=== PATIENT | female | born 1965 | race Caucasian/White ===

== ENCOUNTER → 2016-11-12 | Outpatient (CLI) | payer BC | LOC: MMGSC 11:01 | PROVIDERS: ATTEND Family Medicine | DX: H60.91 Unspecified otitis externa, right ear (principal) | CPT/HCPCS: 87070; 87205 ==

== ENCOUNTER → 2016-11-30 | Outpatient (CLI) | payer BC ==
[2016-11-30 10:34] LABS: CH 31.3; CHCM 33.8; HCT 41.8 % (34.0-46.0); HDW 2.37; MCH 31.2 pg (25.0-35.0); MCHC 33.6 g/dL (31.0-37.0); MCV 92.9 fL (80.0-100.0); Mean Platelet Volume 8.7; RBC 4.49 m/uL (3.80-5.40); RDW 12.9 % (11.5-15.5); WBC 5.6 k/uL (3.8-10.6)
[2016-11-30 10:48] LABS: ALT 37 U/L (9-52); AST 25 U/L (14-36); Alkaline Phosphatase 73 U/L (38-126); Anion Gap 14 mmol/L; Blood Urea Nitrogen 14 mg/dL (7-17); Calcium 9.9 mg/dL (8.4-10.2); Carbon Dioxide 26 mmol/L (22-30); Chloride 102 mmol/L (98-107); Glucose 87 mg/dL (74-99); Non-African American GFR(MDRD) >60 (>60 ml/min/1.73 sqM); Potassium 4.3 mmol/L (3.5-5.1); Sodium 142 mmol/L (137-145); Total Bilirubin 0.5 mg/dL (0.2-1.3); Total Protein 7.9 g/dL (6.3-8.2)
[2016-11-30 11:18] LABS: Partial Thromboplastin Time 24.3 sec (22.0-30.0); Prothrombin Time 10.5 sec (9.0-12.0)
[2016-11-30 13:50] LABS: Appearance,Urine Clear (Clear); Bilirubin,Urine Negative (Negative); Glucose,Urine (UA) Negative (Negative); Ketones,Urine Negative (Negative); Leukocyte Esterase,Urine Small (Negative); Nitrite,Urine Negative (Negative); Particle Count 305; Protein,Urine Negative (Negative); Specific Gravity,Urine 1.003 (1.001-1.035); UA Billing (MACRO vs. MICRO) MICRO; Urobilinogen,Urine <2.0 mg/dL (<2.0); WBC,Urine 2 /hpf (0-5)
== END | disposition home or self-care (01) ==
LOC: LABWHC1 09:48
PROVIDERS: ATTEND Orthopaedic Surgery
DX: Z01.810 Encounter for preprocedural cardiovascular examination (principal); Z01.812 Encounter for preprocedural laboratory examination
CPT/HCPCS: 36415; 80053; 81001; 85027; 85610; 85730; 86850; 86900; 86901; 87070

== ENCOUNTER 2016-12-08 07:11 | Inpatient (IN) | payer BC ==
[2016-12-02 14:29] VITALS: BMI 34.9
[~2016-12-08 07:11] MED LIST: ACETAMINOPHEN TAB 500 MG TAB PO ONE; DEXAMETHASONE SOD PHOSPHATE 10 MG/ML 1 ML VIAL IV ONE; HYDROmorphone 1 MG/ML 1 ML SYRINGE IVP PRN; LIDOCAINE 1% 20 ML VIAL (10MG/ML) FOR IV START INTRADERMA PRN; MELOXICAM 7.5 MG TAB PO ONE; MIDAZOLAM 2 MG/2 ML VIAL IV PRN; ONDANSETRON 4 MG/2 ML VIAL IVP ONE; SCOPOLAMINE 1.5MG/72HR PATCH TRANSDERM ONE; TRANEXAMIC ACID 1,000 MG in SODIUM CHLORIDE 0.9% 100 ML IVPB ONE; ceFAZolin 2 GM in SODIUM CHLORIDE 0.9% 100 ML IVPB ONE
[2016-12-08] MEDS: LACTATED RINGERS 1,000 ML IV SCH (08:09)
[2016-12-08] MEDS ORDERED: MIDAZOLAM 2 MG/2 ML VIAL ONE (09:49)
[2016-12-08] MEDS ORDERED: ePHEDrine 50 MG/ML 1 ML AMP ONE (09:49)
[2016-12-08] MEDS ORDERED: SODIUM CHLORIDE 0.9% IRRIG 1,000 ML BTL IRRIGATION ONE (09:49)
[2016-12-08] MEDS ORDERED: TRANEXAMIC ACID 1,000 MG/10 ML VIAL ONE (09:49)
[2016-12-08] MEDS ORDERED: fentaNYL (PF) 50 MCG/ML 2 ML AMP ONE (09:49)
[2016-12-08] MEDS ORDERED: SODIUM CHLORIDE 0.9% 100 ML BAG ONE (09:49)
[2016-12-08] MEDS ORDERED: PROPOFOL 10 MG/ML 20 ML VIAL IV ONE (09:49)
[2016-12-08] MEDS ORDERED: ceFAZolin 3,000 MG in SODIUM CHLORIDE 0.9% IRRIGATIO 3,000 ML IRRIGATION ONE (09:49)
[2016-12-08] MEDS ORDERED: HEPARIN SODIUM,PORCINE 10,000 UNIT/ML 1 ML VIAL ONE (09:49)
[2016-12-08] MEDS: ROPIVACAINE 246.25 MG, EPINEPHrine 0.5 MG, KETOROLAC 30 MG, cloNIDine HCL/PF 80 MCG, WA... MISCELLANE ONE ×10 (10:08→11:06)
[2016-12-08] MEDS ORDERED: LACTATED RINGERS 1,000 ML IV ONE (11:00)
--- NOTE | 2016-12-08 11:24 | XR ---
EXAMINATION TYPE: XR Hip Limited RT DATE OF EXAM: 12/08/2016 COMPARISON: NONE HISTORY: Intraoperative right hip surgery TECHNIQUE: One view submitted. FINDINGS: There is a prosthetic hip in near anatomic alignment. There is soft tissue edema and emphysema. IMPRESSION: 1. Surgical change. Appears in near-anatomic alignment.
--- NOTE | 2016-12-08 11:25 | FL ---
FLUOROSCOPY 62nd of fluoroscopy time were utilized during right anterior hip replacement. 2 images document the p rocedure.
[2016-12-08] MEDS ORDERED: DIAZEPAM 5 MG TAB PO PRN ×2 (11:46)
[2016-12-08] MEDS ORDERED: MAGNESIUM HYDROXIDE 2,400 MG/10 ML CUP PO PRN (11:46)
[2016-12-08] MEDS ORDERED: HYDROmorphone 1 MG/ML 1 ML SYRINGE IVP PRN ×3 (11:46)
[2016-12-08] MEDS ORDERED: hydrOXYzine PAMOATE 25 MG CAP PO PRN (11:46)
[2016-12-08] MEDS ORDERED: NALOXONE 0.4 MG/ML 1 ML VIAL IV PRN (11:46)
[2016-12-08] MEDS ORDERED: ONDANSETRON 4 MG/2 ML VIAL IVP PRN (11:46)
[2016-12-08] MEDS ORDERED: HYDROcodone/APAP 5-325MG 1 EACH TAB PO PRN (11:46)
--- NOTE | 2016-12-08 12:06 | XR ---
EXAMINATION TYPE: XR Hip Limited RT DATE OF EXAM: 12/08/2016 COMPARISON: NONE HISTORY: Postop TECHNIQUE: One view submitted. FINDINGS: There is a prosthetic hip in near anatomic alignment. There is soft tissue edema and emphysema. IMPRESSION: 1. Postoperative change. Appears in near-anatomic alignment.
--- NOTE | 2016-12-08 12:32 | P.OP ---
Date of Procedure: 12/08/16 Preoperative Diagnosis: Severe osteoarthritis right hip Postoperative Diagnosis: Severe osteoarthritis right hip Procedure(s) Performed: Right total hip arthroplasty with a direct anterior approach Implants: Santa and nephew Polarstem size 3 standard Santa & Nephew R3, 3 hole acetabular shell, 48 mm Santa & Nephew reflection 6.5 mm cancellus screw, 20 mm 2 Santa [employer] Nephew R3, XLPE 20 acetabular liner Santa & Nephew Oxinium femoral head 32 m, +0 All components were press-fit. The articulation is ceramic on polyethylene. Anesthesia: spinal Surgeon: Benjamin Pepper Drop Pit Worker #1: Padma Archer Estimated Blood Loss (ml): 200 (63 cc returned with cell saver) Pathology: other (Femoral head) Condition: stable Disposition: PACU Indications for Procedure: After failure of conservative treatment we discussed the surgical and nonsurgical treatment options at length. Patient wishes to proceed with a total hip arthroplasty with a direct anterior approach. Complications specific to this procedure were discussed at length, including but not limited to infection, leg length discrepancy, dislocation, and nerve injury. Patient is aware of all these complications and informed consent was obtained Operative Findings: The operative findings are consistent with severe osteoarthritis of the right hip Description of Procedure: Patient was seen and evaluated in the preoperative area, consent was reviewed, and the surgical site was marked with a skin marker. Patient was then brought to the operating room and given prophylactic antibiotics intravenously. 1 g of Tranexamic acid was also given. A spinal anesthetic was administered by the anesthesia department. The patient was then placed on the [place] table with the bony prominences well-padded. The hip area was then prepped and draped in usual sterile fashion. A universal timeout was then performed, which confirmed the patient's name, surgical site, ALLERGIES, and procedure being performed. Next the incision site was located at 1 cm distal and 1 cm lateral to the anterior superior iliac spine. The skin and subcutaneous tissues were sharply incised. Incision was carefully dissected down to the fascia overlying the tensor fascia jose muscle. This fascia was then incised in line with the incision. Next, using blunt finger dissection, the tensor fascia jose muscle was dissected off its investing fascia. The muscle was then carefully retracted laterally with a cobra retractor over the lateral neck of the femur. Next, the circumflex vessels were identified and cauterized using the AquaMantis device. The anterior hip capsule was then exposed. The capsule was then opened and an inverted T fashion. Retention sutures were placed in the inferior arms of the capsule. Cobra retractors were then placed intracapsularly. The proximal femur was then visualized. The femoral neck was then osteotomized appropriate level above the lesser trochanter. Small amount of traction was placed with the [place] table. A small wedge of bone was then removed from the remaining femoral head. Next, using a corkscrew femoral head was easily removed from the acetabulum. On gross visual inspection, the femoral head had complete loss of articular cartilage in multiple periarticular osteophytes. Attention was then turned to the acetabulum. the acetabulum was exposed and any remaining labrum was excised. Sequential reaming of the acetabulum was performed using fluoroscopic guidance. When the appropriate size was reached, a trial was then placed. The position and fit of the trial was checked with fluoroscopy. The trial was then removed. Then, using fluoroscopic guidance, the final implant was impacted at 20 of anteversion and 40 of abduction, and fully seated in the acetabulum. 2 screws were then placed in the acetabulum. Again fluoroscopy was used to check position of the screws. Next, the liner was then impacted, with a 20 elevated liner located in the anterior superior quadrant. Component locking was confirmed. Attention was then directed to the femur. With the aid of the [place] table, the femur was externally rotated to approximately 130, extended, and abducted under the opposite leg. A side hook was then placed under the proximal femur, and the side hook elevator was used to elevate the proximal femur. Retractors were then placed. A capsular release was performed, as well as a release of the conjoined tendon, which afforded excellent visualization of the proximal femur. Next, a box osteotome was used to lateralize the proximal femur. A hand tacker was then used to locate the femoral canal. Sequential broaching was then performed with appropriate size which afforded excellent fixation in the proximal femur. A trial was then placed with appropriate head and neck, and the hip was gently reduced with the aid of the [place] table. Fluoroscopy was then used to check position of the components, as well as to ensure equal leg lengths. The hip was then gently dislocated and the trials were then removed. Final implants were then impacted and the hip was again reduced. Final fluoroscopic x-rays confirmed that the components were in anatomic position, as well as equal leg lengths. The hip was also taken through range of motion, and found to be stable. The hip was then copiously irrigated with antibiotic solution with pulsatile lavage. The soft tissues were then injected with a ropivacaine solution, which consisted of 246.25 mg of ropivacaine, 0.5 mg of epinephrine, 30 mg of Toradol, 80 g of clonidine, and 48.45 mL of sterile water, for a total of 100 mL of fluid injected. A second dose of 1 g of Tranexamic acid was also given. the fascia was then closed with 2-0 strata fix suture. The subcutaneous tissue was closed with 3-0 Vicryl. The subcuticular tissue was closed with 3-0 strata fix suture. The skin was then closed with Dermabond tape. The patient was then transferred to the recovery room in stable condition. The community assistant JORGE Erickson was required due to the complexity of surgery, and the need for skilled apartment assistant manager for positioning, draping, exposure, retraction, and closure of the wound.
[2016-12-08] MEDS: ceFAZolin 2 GM in SODIUM CHLORIDE 0.9% 100 ML IVPB SCH ×2 (15:39→23:05)
[2016-12-08] MEDS: SODIUM CHLORIDE 0.9% 1,000 ML IV SCH (15:39)
--- NOTE | 2016-12-08 18:31 | P.CONS ---
History of Present Illness - Reason for Consult Consult date: 12/08/16 Medical management Requesting physician: Benjamin Pepper - Chief Complaint Post right total hip arthroplasty, COPD, tachycardia and arrhythmia, GERD, - History of Present Illness 51-year-old female one of Dr. Mukherjee's patient with past medical history of elevated blood pressure, mild COPD, GERD, tachycardia and chronic edema who has been suffering from increased arthritis pain and discomfort of the right hip for the last 4 years. Patient had seen Dr. ePpper and failed conservative management had physical therapy and anti-inflammatory with no relief. Patient was scheduled for elective right total hip anterior approach total hip replacement surgery was done today successfully with no major complication she is up in the floor her Ace catheter was removed back on oral hydrocodone for pain patient was able template slightly. Review of Systems Constitutional: Reports anorexia, Reports fatigue, Reports malaise, Denies as per HPI, Denies chills, Denies chronic headaches, Denies chronic pain, Denies daytime sleepiness, Denies fever, Denies lethargy, Denies night sweats, Denies poor appetite, Denies sweats, Denies weakness, Denies weight gain, Denies weight loss Eyes: bilateral as per HPI Ears: bilateral: decreased hearing Ears, nose, mouth and throat: Reports nasal discharge, Reports sinus pain, Reports sinus pressure, Denies as per HPI, Denies ant. neck pain, Denies bleeding gums, Denies dental pain, Denies dysphagia, Denies epistaxis, Denies headache, Denies hoarseness, Denies mouth pain, Denies nasal congestion, Denies neck fullness/pressure, Denies neck lump, Denies nose pain, Denies odynophagia, Denies post-nasal drip, Denies swelling in mouth, Denies swelling in throat, Denies sore throat, Denies vertigo, Denies voice changes Breasts: bilateral: as per HPI Cardiovascular: Reports edema, Reports high blood pressure, Reports lightheadedness, Reports orthopnea, Denies as per HPI, Denies chest pain, Denies claudication, Denies decreased exercise tolerance, Denies dyspnea on exertion, Denies irregular heart beat, Denies leg edema, Denies palpitations, Denies paroxysmal nocturnal dyspnea, Denies phlebitis, Denies rapid heart beat, Denies shortness of breath, Denies syncope Respiratory: Reports congestion, Denies as per HPI, Denies cough, Denies cough with sputum, Denies dyspnea, Denies excessive sputum, Denies hemoptysis, Denies home oxygen, Denies pain, Denies pain on inspiration, Denies pleurisy, Denies respiratory infections, Denies sleep apnea, Denies snoring, Denies wheezing Gastrointestinal: Reports bloating, Reports dyspepsia, Reports indigestion, Reports nausea, Denies as per HPI, Denies abdominal pain, Denies belching, Denies BRBPR, Denies change in bowel habits, Denies coffee ground emesis, Denies constipation, Denies diarrhea, Denies early satiety, Denies excessive gas , Denies heartburn, Denies hematemesis, Denies hematochezia, Denies jaundice, Denies lactose intolerance, Denies loss of appetite, Denies melena, Denies vomiting Musculoskeletal: Reports loss of height, Reports low back pain, Reports myalgias , Reports neck pain, Denies as per HPI, Denies arm numbness/tingling, Denies atrophy, Denies fractures, Denies frequent falls, Denies gait dysfunction, Denies hot joints, Denies leg numbness/tingling, Denies limitation of motion, Denies morning stiffness, Denies muscle cramps, Denies muscle weakness, Denies neck stiffness, Denies prior amputations, Denies redness of joints, Denies shooting arm pain, Denies shooting leg pain Musculoskeletal: right: hip pain Integumentary: Reports pruritus, Reports rash, Denies as per HPI, Denies acne, Denies boils, Denies brittle nails, Denies change in hair/nails, Denies color changes, Denies darkening of skin, Denies depigmentation, Denies dryness, Denies foot/leg ulcers, Denies growths, Denies hirsutism, Denies lesions, Denies onychomycosis, Denies sores, Denies striae, Denies unusual bruising, Denies wounds Neurological: Reports paresthesias, Reports tingling, Denies as per HPI, Denies aphasia, Denies ataxia, Denies balance difficulties, Denies burning pain, Denies change in mentation, Denies change in smell/taste, Denies change in speech, Denies confusion, Denies convulsions, Denies double vision, Denies gait dysfunction, Denies head injury, Denies headaches, Denies hearing difficulties, Denies lack of coordination, Denies loss of vision, Denies memory loss, Denies migraines, Denies motor disturbance, Denies numbness, Denies paralysis, Denies seizures, Denies sensory deficit, Denies spasticity, Denies syncope, Denies tic , Denies transient paralysis, Denies tremors, Denies vertigo, Denies weakness, Denies visual changes Psychiatric: Reports anhedonia, Reports depression, Denies as per HPI, Denies anxiety, Denies anxiety attacks, Denies change in appetite, Denies change in libido, Denies change in sleep habits, Denies confusion, Denies difficulty concentrating, Denies disorientation, Denies hallucinations, Denies hopelessness , Denies hypersomnia, Denies insomnia, Denies irritability, Denies memory loss, Denies mood swings, Denies paranoia, Denies sadness/tearfulness, Denies sleep disturbances, Denies suicidal ideation Endocrine: Reports fatigue, Reports polydipsia, Reports polyuria, Denies as per HPI, Denies cold intolerance, Denies deepening of the voice, Denies excessive sweating, Denies excessive thirst, Denies flushing, Denies heat intolerance, Denies high blood sugars, Denies increase in ring/shoe/hat size, Denies low blood sugars, Denies nocturia, Denies palpitations, Denies polyphagia, Denies proptosis, Denies recent glucocorticoid use, Denies thyroid mass, Denies weight change Hematologic/Lymphatic: Denies as per HPI, Denies easy bleeding, Denies easy bruising, Denies lymphadenopathy, Denies lymphedema, Denies thrombophilia Allergic/Immunologic: Reports allergic rhinitis, Denies as per HPI, Denies anaphylaxis, Denies angioedema, Denies gluten intolerance, Denies persistent infections, Denies seasonal allergies, Denies urticaria, Denies wheezing Past Medical History Past Medical History: COPD, GERD/Reflux, Osteoarthritis (OA) Additional Past Medical History / Comment(s): sinus tachycardia History of Any Multi-Drug Resistant Organisms: None Reported Past Surgical History: Orthopedic Surgery, Tubal Ligation Additional Past Surgical History / Comment(s): cervical fusion, carpal tunnel release, arthroscopic knee surg. Past Anesthesia/Blood Transfusion Reactions: Postoperative Nausea & Vomiting ( PONV) Smoking Status: Former smoker - Past Family History Mother Family Medical History: No Reported History Medications and Allergies Home Medications Medication Instructions Recorded Confirmed Type Calcium Carbonate/Vitamin D3 1 tab PO DAILY 02/12/15 12/08/16 History [Calcium 600 + Vit D Tablet] Cetirizine HCl [Zyrtec] 10 mg PO DAILY 02/12/15 12/08/16 History Flaxseed [Flaxseed Oil] 1,000 mg PO DAILY 02/12/15 12/08/16 History Nebivolol HCl [Bystolic] 10 mg PO DAILY 02/12/15 12/08/16 History Omeprazole [PriLOSEC] 20 mg PO QAM 02/12/15 12/08/16 History buPROPion HCL [Wellbutrin SR] 150 mg PO BID 02/12/15 12/08/16 History Cholecalciferol [Vitamin D3] 1,000 unit PO DAILY 12/02/16 12/08/16 History Hydrochlorothiazide [Hydrodiuril] 25 mg PO DAILY 12/02/16 12/08/16 History Ibuprofen [Motrin] 600 mg PO Q8HR PRN 12/02/16 12/08/16 History Multivit with Calcium,Iron,Min 1 tab PO DAILY 12/02/16 12/08/16 History [Women's Multivitamin] Turmeric Root Extract [Turmeric] 500 mg PO DAILY 12/02/16 12/08/16 History Vitamin B Complex 1 cap PO DAILY 12/02/16 12/08/16 History Allergies Allergy/AdvReac Type Severity Reaction Status Date / Time venom-honey bee Allergy Severe Anaphylaxis Verified 12/08/16 12:23 [bee venom (honey bee)] Physical Exam Vitals: Vital Signs Temp Pulse Resp BP Pulse Ox 12/08/16 14:15 91 101/56 12/08/16 14:00 85 105/58 12/08/16 13:45 82 100/56 12/08/16 13:30 82 98/53 12/08/16 13:15 83 108/55 12/08/16 13:00 80 108/58 12/08/16 12:45 82 120/58 12/08/16 12:30 97.0 F L 65 18 119/53 100 12/08/16 12:16 70 16 99/62 99 12/08/16 12:01 73 16 99/60 99 12/08/16 11:46 86 16 98/55 98 12/08/16 07:55 98.2 F 86 16 134/65 96 Intake and Output 12/08/16 12/08/16 12/08/16 06:59 14:59 22:59 Intake Total 1641 Output Total 200 Balance 1441 Intake: IV 1501 Intake, IV Titration 140 Amount Sodium Chloride 0.9% 1, 140 000 ml @ 70 mls/hr IV . [id number] [facility] Rx#:[id number] Output: Estimated Blood Loss 200 Other: Voiding Method Toilet # Voids 1 - Constitutional General appearance: no average body habitus, cooperative, no disheveled, no mild distress, no morbidly obese, no acute distress, no obese, no severe distress, no thin - EENT Eyes: no abnormal pupil, no anicteric sclerae, no disc margins sharp, no edentulous, no EOMI, no PERRLA, no fundus normal, no photophobia, no dentition normal, no poor dentition, no ptosis, no scleral icterus, normal appearance ENT: no hard of hearing, no hearing grossly normal, no NA/AT, normal oropharynx , no other, no pharyngeal erythema, no thrush, no tonsillar exudates, no tonsillar swelling Ears: bilateral: normal - Neck Neck: no lymphadenopathy, normal ROM, no other, no rigidity, no stridor, no thyromegaly Carotids: bilateral: upstroke normal Thyroid: bilateral: normal size - Respiratory Respiratory: bilateral: diminished, dullness - Cardiovascular Rhythm: regular Heart sounds: normal: S1, S2 Abnormal Heart Sounds: no systolic murmur, no diastolic murmur, no rub, no S3 Gallop, no S4 Gallop, no click, no other - Gastrointestinal General gastrointestinal: no absent bowel sounds, no decreased bowel sounds, distended, no hepatomegaly, no hyperactive bowel sounds, no normal bowel sounds , no organomegaly, no rigid, no scaphoid, soft, no splenomegaly, no tenderness, no umbilical hernia, no ventral hernia - Integumentary Incision in the right hip looks fine with no hematoma or thigh tenderness possible pulse dorsalis pedis and no sign of dropping foot. Integumentary: no calor, no cellulitis, no cyanotic, no decreased turgor, no flushed, no jaundiced, normal, no normal turgor, pale, rash, no ulcer - Neurologic Neurologic: CNII-XII intact - Musculoskeletal Musculoskeletal: gait normal, generalized weakness, strength equal bilaterally, no right sided weakness, no left sided weakness - Psychiatric Psychiatric: A&O x's 3, appropriate affect, no intact judgment & insight Assessment and Plan Plan: 1 post right total hip arthroplasty: Resume home meds, will watch patient hemodynamic status, control pain and anticoagulation will be addressed. 2 COPD: Patient can be on precaution DuoNeb nebulizer as needed. 3 hypertension: Has been doing well on by systolic 10 mg daily. 4 severe GERD: Has been on omeprazole 20 mg a day. 5 chronic edema: Has been on Hydrea diarrheal 25 g a day. 6 chronic depression: Patient is on Wellbutrin 150 mg twice a day. 7 ALLERGY: Patient to be continue on Zyrtec 10 mg daily. 8 anticoagulation: With patient's current surgery patient can benefit from being on full-size aspirin for the next 30 days. 9 pulmonary prophylaxis: Incentive spirometry bedside and watch for any atelectasis or lung complication. CODE STATUS: Full code. Dr. Pepper thank you very much for the consult if I can be any further help to please let me know.
[2016-12-08 19:44] VITALS: RESP 16
[2016-12-08] MEDS ORDERED: SENNOSIDES-DOCUSATE SODIUM 1 EACH TAB PO SCH (21:00)
[2016-12-08] MEDS: ASPIRIN 325 MG TAB PO SCH (22:06)
[2016-12-08] MEDS: HYDROcodone/APAP 5-325MG 1 EACH TAB PO PRN (22:06)
[2016-12-09] MEDS: LACTATED RINGERS 1,000 ML IV SCH (04:19)
[2016-12-09] MEDS: SODIUM CHLORIDE 0.9% 1,000 ML IV SCH (04:32)
[2016-12-09] MEDS: HYDROcodone/APAP 5-325MG 1 EACH TAB PO PRN ×2 (06:09→11:53)
[2016-12-09 07:33] LABS: Basophils % (A) 0 %; CH 31.5; CHCM 34.4; Eosinophils % (A) 0 %; HDW 2.44; HGB 10.9 gm/dL (11.4-16.0); Luc # (Auto) 0.21; Luc % (Auto) 3; Lymphocytes # (A) 2.1 k/uL (1.0-4.8); Lymphocytes % (A) 27 %; MCH 31.2 pg (25.0-35.0); MCHC 33.9 g/dL (31.0-37.0); Mean Platelet Volume 8.3; Monocytes # (A) 0.5 k/uL (0-1.0); Monocytes % (A) 7 %; Neutrophils % (A) 63 %; RBC 3.48 m/uL (3.80-5.40); RDW 12.9 % (11.5-15.5); WBC (Perox) 8.33
[2016-12-09 08:31] VITALS: BP 111/62; PULSE 83; TEMP 97.8
--- NOTE | 2016-12-09 08:45 | P.DS ---
Providers Date of admission: 12/08/16 07:11 Expected date of discharge: 12/09/16 Attending physician: Benjamin Pepper Consults: 12/08/16 11:46 Consult Physician Routine Consulting Provider: Zhen Ayala Reason/Comments: medical management Do you want consulting provider notified?: Yes Primary care physician: Suha [facility] Course: This is a 51-year-old female with known history of degenerative arthritis of the right hip. The patient presents for evaluation. After discussion and consideration patient elects to proceed with total hip arthroplasty. The patient is seen preoperatively by Dr. Pepper and cleared for surgery. Patient is admitted to [facility] on 12/08/2016 for total hip arthroplasty. The procedures performed without complication or sequelae. The patient is doing well postoperatively. Labs and vital signs are stable on day of discharge. On day of discharge patient's hip incision is healing well. There is minimal erythema. There is no drainage noted at this time. There is minimal soft tissue swelling to the hip and thigh. Patient has full foot and ankle motion without difficulty or pain. Neurovascular status to the right lower extremity is intact. Patient is discharged home in good condition.Please see med rec for accurate list of home medications. Plan - Discharge Summary New Discharge Prescriptions: New Aspirin 325 mg PO BID #60 tab HYDROcodone/APAP 5-325MG [[place] 5-325] 1 - 2 tab PO Q4-6H PRN #90 tab PRN Reason: Pain Sennosides-Docusate Sodium [Senokot-S] 1 tab PO BID #60 tablet No Action buPROPion HCL [Wellbutrin SR] 150 mg PO BID Omeprazole [PriLOSEC] 20 mg PO QAM Cetirizine HCl [Zyrtec] 10 mg PO DAILY Nebivolol HCl [Bystolic] 10 mg PO DAILY Flaxseed [Flaxseed Oil] 1,000 mg PO DAILY Calcium Carbonate/Vitamin D3 [Calcium 600 + Vit D Tablet] 1 tab PO DAILY Hydrochlorothiazide [Hydrodiuril] 25 mg PO DAILY Cholecalciferol [Vitamin D3] 1,000 unit PO DAILY Ibuprofen [Motrin] 600 mg PO Q8HR PRN PRN Reason: Pain Vitamin B Complex 1 cap PO DAILY Turmeric Root Extract [Turmeric] 500 mg PO DAILY Multivit with Calcium,Iron,Min [Women's Multivitamin] 1 tab PO DAILY Discharge Medication List Calcium Carbonate/Vitamin D3 [Calcium 600 + Vit D Tablet] 1 tab PO DAILY [History] Cetirizine HCl [Zyrtec] 10 mg PO DAILY 02/12/15 [History] Flaxseed [Flaxseed Oil] 1,000 mg PO DAILY 02/12/15 [History] Nebivolol HCl [Bystolic] 10 mg PO DAILY 02/12/15 [History] Omeprazole [PriLOSEC] 20 mg PO QAM 02/12/15 [History] buPROPion HCL [Wellbutrin SR] 150 mg PO BID 02/12/15 [History] Cholecalciferol [Vitamin D3] 1,000 unit PO DAILY 12/02/16 [History] Hydrochlorothiazide [Hydrodiuril] 25 mg PO DAILY 12/02/16 [History] Ibuprofen [Motrin] 600 mg PO Q8HR PRN 12/02/16 [History] Multivit with Calcium,Iron,Min [Women's Multivitamin] 1 tab PO DAILY 12/02/16 [ History] Turmeric Root Extract [Turmeric] 500 mg PO DAILY 12/02/16 [History] Vitamin B Complex 1 cap PO DAILY 12/02/16 [History] Aspirin 325 mg PO BID #60 tab 12/09/16 [Rx] HYDROcodone/APAP 5-325MG [[place] 5-325] 1 - 2 tab PO Q4-6H PRN #90 tab 12/09/16 [ Rx] Sennosides-Docusate Sodium [Senokot-S] 1 tab PO BID #60 tablet 12/09/16 [Rx] Follow up Appointment(s)/Referral(s): Benjamin Pepper DO [Doctor of Osteopathic Medicine] - 2 Weeks Activity/Diet/Wound Care/Special Instructions: Weightbearing as tolerated with walker May shower after 2 days if no drainage from the incision Follow-up with [facility] in 2 weeks with any questions or concerns Discharge Disposition: HOME WITH HOME HEALTH SERVICES
[2016-12-09] MEDS: ASPIRIN 325 MG TAB PO SCH (08:48)
[2016-12-09] MEDS ORDERED: HYDROCHLOROTHIAZIDE 25 MG TAB PO SCH (09:00)
[2016-12-09] MEDS ORDERED: LORATADINE 10 MG TAB PO SCH (09:00)
[2016-12-09] MEDS ORDERED: B COMPLEX-VIT C-VIT E-ZINC 1 EACH TAB PO SCH (09:00)
[2016-12-09] MEDS ORDERED: FLAXSEED 1000 MG PO SCH (09:00)
[2016-12-09] MEDS ORDERED: NEBIVOLOL 5 MG TAB PO SCH (09:00)
[2016-12-09] MEDS ORDERED: MELOXICAM 7.5 MG TAB PO SCH (09:00)
[2016-12-09] MEDS ORDERED: buPROPion SR 150 MG TABLET.ER PO SCH (09:00)
[2016-12-09] MEDS ORDERED: CALCIUM CARB-VIT D 500MG-200UN 1 EACH TAB PO SCH (09:00)
[2016-12-09] MEDS ORDERED: NON-FORMULARY DRUG (Turmeric Root Extract [Turmeric] 500 MG) PO SCH (09:00)
[2016-12-09] MEDS ORDERED: CHOLECALCIFEROL 1,000 UNIT TAB PO SCH (12:00)
--- NOTE | 2016-12-09 12:37 | P.PN ---
Subjective 51-year-old female one of Dr. Mukherjee's patient with past medical history of elevated blood pressure, mild COPD, GERD, tachycardia and chronic edema who has been suffering from increased arthritis pain and discomfort of the right hip for the last 4 years. Patient had seen Dr. Pepper and failed conservative management had physical therapy and anti-inflammatory with no relief. Patient was scheduled for elective right total hip anterior approach total hip replacement surgery was done today successfully with no major complication she is up in the floor her Ace catheter was removed back on oral hydrocodone for pain patient was able template slightly. 12/08: Patient continues to ambulate in hallway. Incision healing well, patient is doing well. Plan for discharge today with outpatient physical therapy. Objective - Vital Signs Vital signs: Vital Signs Temp 97.8 F 12/09/16 07:00 Pulse 83 12/09/16 07:00 Resp 16 12/09/16 07:00 BP 111/62 12/09/16 07:00 Pulse Ox 100 12/09/16 09:48 Intake & Output 12/08/16 12/09/16 12/09/16 18:59 06:59 18:59 Intake Total 1881 840 120 Output Total 200 Balance 1681 840 120 Intake: IV 1501 840 Sodium Chloride 0.9% 1, 840 000 ml @ 70 mls/hr IV . [id number] LADY Rx#:[id number] Intake, IV Titration 140 Amount Sodium Chloride 0.9% 1, 140 000 ml @ 70 mls/hr IV . [id number] LADY Rx#:[id number] Oral 240 120 Output: Estimated Blood Loss 200 Other: Voiding Method Toilet Toilet Toilet # Voids 1 1 - Exam - Constitutional General appearance: no average body habitus, cooperative, no disheveled, no mild distress, no morbidly obese, no acute distress, no obese, no severe distress, no thin - EENT Eyes: no abnormal pupil, no anicteric sclerae, no disc margins sharp, no edentulous, no EOMI, no PERRLA, no fundus normal, no photophobia, no dentition normal, no poor dentition, no ptosis, no scleral icterus, normal appearance ENT: no hard of hearing, no hearing grossly normal, no NA/AT, normal oropharynx , no other, no pharyngeal erythema, no thrush, no tonsillar exudates, no tonsillar swelling Ears: bilateral: normal - Neck Neck: no lymphadenopathy, normal ROM, no other, no rigidity, no stridor, no thyromegaly Carotids: bilateral: upstroke normal Thyroid: bilateral: normal size - Respiratory Respiratory: bilateral: diminished, dullness - Cardiovascular Rhythm: regular Heart sounds: normal: S1, S2 Abnormal Heart Sounds: no systolic murmur, no diastolic murmur, no rub, no S3 Gallop, no S4 Gallop, no click, no other - Gastrointestinal General gastrointestinal: no absent bowel sounds, no decreased bowel sounds, distended, no hepatomegaly, no hyperactive bowel sounds, no normal bowel sounds , no organomegaly, no rigid, no scaphoid, soft, no splenomegaly, no tenderness, no umbilical hernia, no ventral hernia - Integumentary Incision in the right hip looks fine with no hematoma or thigh tenderness possible pulse dorsalis pedis and no sign of dropping foot. Integumentary: no calor, no cellulitis, no cyanotic, no decreased turgor, no flushed, no jaundiced, normal, no normal turgor, pale, rash, no ulcer - Neurologic Neurologic: CNII-XII intact - Musculoskeletal Musculoskeletal: gait normal, generalized weakness, strength equal bilaterally, no right sided weakness, no left sided weakness - Psychiatric Psychiatric: A&O x's 3, appropriate affect, no intact judgment & insight - Labs CBC & Chem 7: 12/09/16 06:44 Labs: Abnormal Lab Results - Last 24 Hours (Table) 12/09/16 Range/Units 06:44 RBC 3.48 L (3.80-5.40) m/uL Hgb 10.9 L D (11.4-16.0) gm/dL Hct 32.0 L (34.0-46.0) % Assessment and Plan Plan: 1 post right total hip arthroplasty: Resume home meds, will watch patient hemodynamic status, control pain and anticoagulation with aspirin. 2 COPD: Patient can be on precaution DuoNeb nebulizer as needed. 3 hypertension: Has been doing well on by systolic 10 mg daily. 4 severe GERD: Has been on omeprazole 20 mg a day. 5 chronic edema: Has been on Hydrea diarrheal 25 g a day. 6 chronic depression: Patient is on Wellbutrin 150 mg twice a day. 7 ALLERGY: Patient to be continue on Zyrtec 10 mg daily. 8 anticoagulation: With patient's current surgery patient can benefit from being on full-size aspirin for the next 30 days. 9 pulmonary prophylaxis: Incentive spirometry bedside and watch for any atelectasis or lung complication. CODE STATUS: Full code. Dr. Pepper thank you very much for the consult if I can be any further help to please let me know. The above impression and plan of care have been discussed and directed by signing physician. Mona Echols nurse practitioner acting as scribe for signing physician.
[2016-12-10] MEDS ORDERED: PANTOPRAZOLE 40 MG TABLET PO SCH (07:30)
== END 2016-12-09 12:53 | disposition home health service (06) | DRG 470 ==
LOC: 2ORMAIN 07:11 → 3SUR 11:57
PROVIDERS: ADMIT Orthopaedic Surgery; ATTEND Orthopaedic Surgery
PROC: 30233N0 Transfusion of Autologous Red Blood Cells into Peripheral Vein, Percutaneous Approach (ICD-10-PCS; 2016-12-08)
PROC: 0SR904A Replacement of Right Hip Joint with Ceramic on Polyethylene Synthetic Substitute, Uncemented, Open Approach (ICD-10-PCS; principal; 2016-12-08 09:50)
DX: M16.11 Unilateral primary osteoarthritis, right hip (principal); I10 Essential (primary) hypertension; J44.9 Chronic obstructive pulmonary disease, unspecified; R60.9 Edema, unspecified; J30.9 Allergic rhinitis, unspecified; F32.9 Major depressive disorder, single episode, unspecified; E55.9 Vitamin D deficiency, unspecified; R53.1 Weakness; K21.9 Gastro-esophageal reflux disease without esophagitis; Z87.891 Personal history of nicotine dependence; Z79.899 Other long term (current) drug therapy; Z91.030 Bee allergy status; Z86.79 Personal history of other diseases of the circulatory system; Z79.1 Long term (current) use of non-steroidal anti-inflammatories (NSAID); Z98.51 Tubal ligation status; Z98.1 Arthrodesis status; Z79.51 Long term (current) use of inhaled steroids
CPT/HCPCS: 73501; 85025; 86850; 86891; 86900; 86901; 88300

== ENCOUNTER → 2018-03-18 | Outpatient (CLI) | payer BC ==
--- NOTE | 2018-03-21 10:06 | MM ---
Reason for exam: screening (asymptomatic). Last mammogram was performed 2 years and 8 months ago. History: Patient is postmenopausal. Family history of breast cancer in maternal aunt at age 50. Physical Findings: A clinical breast exam by your physician is recommended on an annual basis and results should be correlated with mammographic findings. MG 3D Screening Mammo W/Cad Bilateral CC and MLO view(s) were taken. Prior study comparison: August 01, 2015, left breast MG 3d diag mammo w/cad LT. December 27, 2014, mammogram, performed at [facility]. The breast tissue is heterogeneously dense. This may lower the sensitivity of mammography. There is chronic nodularity bilaterally. There is no dominant lesion. No significant changes when compared with prior studies. ASSESSMENT: Benign, BI-RAD 2 RECOMMENDATION: Routine screening mammogram of both breasts in 1 year.
== END | disposition home or self-care (01) ==
LOC: RADMAMWWP 09:05
PROVIDERS: ATTEND Family Medicine
DX: Z12.31 Encounter for screening mammogram for malignant neoplasm of breast (principal)
CPT/HCPCS: 77063; 77067

== ENCOUNTER → 2019-05-05 | Outpatient (CLI) | payer BC ==
--- NOTE | 2019-05-08 09:04 | MM ---
Reason for exam: screening (asymptomatic). Last mammogram was performed 1 year and 2 months ago. History: Patient is postmenopausal. Family history of breast cancer in maternal aunt at age 50. Physical Findings: A clinical breast exam by your physician is recommended on an annual basis and results should be correlated with mammographic findings. MG 3D Screening Mammo W/Cad Bilateral CC and MLO view(s) were taken. Prior study comparison: March 18, 2018, bilateral MG 3d screening mammo w/cad. August 01, 2015, left breast MG 3d diag mammo w/cad LT. There are scattered fibroglandular densities. There are benign appearing round oval circumscribed bilateral stable masses. No suspicious abnormality. No significant changes when compared with prior studies. ASSESSMENT: Benign, BI-RAD 2 RECOMMENDATION: Routine screening mammogram of both breasts in 1 year.
== END | disposition home or self-care (01) ==
LOC: RADMAMWWP 10:06
PROVIDERS: ATTEND Family Medicine
DX: Z12.31 Encounter for screening mammogram for malignant neoplasm of breast (principal)
CPT/HCPCS: 77063; 77067

== ENCOUNTER → 2020-05-23 | Outpatient (CLI) | payer BC ==
[2020-05-23 20:03] LABS: Follicle Stimulating Hormone 56.5 mIU/mL
[2020-05-23 20:17] LABS: Estradiol 16.4 pg/mL
== END | disposition home or self-care (01) ==
LOC: LABWHC1 11:07
PROVIDERS: ATTEND Obstetrics & Gynecology
DX: N95.1 Menopausal and female climacteric states (principal); R61 Generalized hyperhidrosis
CPT/HCPCS: 36415; 82670; 83001; 84144; 84403

== ENCOUNTER → 2020-05-27 | Outpatient (CLI) | payer BC ==
--- NOTE | 2020-05-28 09:42 | MM ---
Reason for exam: screening (asymptomatic). Last mammogram was performed 1 year and 1 month ago. History: Patient is postmenopausal. Family history of breast cancer in maternal aunt at age 50. Physical Findings: A clinical breast exam by your physician is recommended on an annual basis and results should be correlated with mammographic findings. MG 3D Screening Mammo W/Cad Bilateral CC and MLO view(s) were taken. Prior study comparison: May 05, 2019, bilateral MG 3d screening mammo w/cad. March 18, 2018, bilateral MG 3d screening mammo w/cad. There are scattered fibroglandular densities. There is chronic nodularity bilaterally. No significant changes when compared with prior studies. ASSESSMENT: Benign, BI-RAD 2 RECOMMENDATION: Routine screening mammogram of both breasts in 1 year.
== END | disposition home or self-care (01) ==
LOC: RADMAMWWP 16:12
PROVIDERS: ATTEND Obstetrics & Gynecology
DX: Z12.31 Encounter for screening mammogram for malignant neoplasm of breast (principal)
CPT/HCPCS: 77063; 77067

== ENCOUNTER → 2020-07-15 | Outpatient (CLI) | payer BC ==
[2020-07-15 16:23] LABS: Estradiol 43.1 pg/mL; Follicle Stimulating Hormone 32.2 mIU/mL
== END | disposition home or self-care (01) ==
LOC: LABWHC1 09:35
PROVIDERS: ATTEND Obstetrics & Gynecology
DX: N95.1 Menopausal and female climacteric states (principal); R53.83 Other fatigue; G47.00 Insomnia, unspecified
CPT/HCPCS: 36415; 82670; 83001; 84144; 84403

== ENCOUNTER → 2021-06-03 | Outpatient (CLI) | payer BC ==
[2021-06-03 19:34] LABS: Estradiol 26.7 pg/mL; Follicle Stimulating Hormone 24.8 mIU/mL
== END | disposition home or self-care (01) ==
LOC: LABWHC1 09:55
PROVIDERS: ATTEND Obstetrics & Gynecology
DX: E34.50 Androgen insensitivity syndrome, unspecified (principal); N95.1 Menopausal and female climacteric states; R37 Sexual dysfunction, unspecified
CPT/HCPCS: 36415; 82670; 83001; 84144; 84403

== ENCOUNTER → 2021-07-16 | Outpatient (CLI) | payer BC ==
--- NOTE | 2021-07-18 09:57 | MM ---
Reason for exam: screening (asymptomatic). Last mammogram was performed 1 year and 2 months ago. History: Patient is postmenopausal. Family history of breast cancer in maternal aunt at age 50. Taking progesterone for 1 year. Taking other hormone for 1 year. Physical Findings: A clinical breast exam by your physician is recommended on an annual basis and results should be correlated with mammographic findings. MG 3D Screening Mammo W/Cad Bilateral CC and MLO view(s) were taken. Prior study comparison: May 27, 2020, bilateral MG 3d screening mammo w/cad. May 05, 2019, bilateral MG 3d screening mammo w/cad. There are scattered fibroglandular densities. Unchanged asymmetric densities left breast. No significant changes when compared with prior studies. ASSESSMENT: Benign, BI-RAD 2 RECOMMENDATION: Routine screening mammogram of both breasts in 1 year.
== END | disposition home or self-care (01) ==
LOC: RADMAMWWP 11:10
PROVIDERS: ATTEND Obstetrics & Gynecology
DX: Z12.31 Encounter for screening mammogram for malignant neoplasm of breast (principal); Z80.3 Family history of malignant neoplasm of breast; Z78.0 Asymptomatic menopausal state
CPT/HCPCS: 77063; 77067

== ENCOUNTER → 2023-02-18 | Outpatient (CLI) | payer BC ==
--- NOTE | 2023-02-21 23:36 | MM ---
Reason for Exam: Screening (asymptomatic). Last mammogram was performed 1 year(s) and 7 month(s) ago. Patient History: Menarche at age 11. First Full-Term at age 20. Postmenopausal. Currently using Progesterone, for 1 year. Maternal aunt had breast cancer, age 50. Risk Values: Meg 5 year model risk: 1.2%. NCI Lifetime model risk: 6.9%. Prior Study Comparison: 05/05/2019 Bilateral Screening Mammogram, [facility]. 05/27/2020 Bilateral Screening Mammogram, [facility]. 07/16/2021 Bilateral Screening Mammogram, [facility]. Tissue Density: There are scattered fibroglandular densities. Findings: Analyzed By CAD. Unchanged subareolar asymmetric density left cc view. There is no suspicious group of microcalcifications or new suspicious mass in either breast. Overall Assessment: Benign, BI-RAD 2 Management: Screening Mammogram of both breasts in 1 year. . Patient should continue monthly self-breast exams. A clinical breast exam by your physician is recommended on an annual basis. This exam should not preclude additional follow-up of suspicious palpable abnormalities. Note on Meg scores and lifetime risk: 1. A Meg score greater than 3% is considered moderate risk. If this is the case, consider specialist referral to assess eligibility for a risk reducing agent. 2. If overall lifetime risk for the development of breast cancer is 20% or higher, the patient may qualify for future screening with alternating mammogram and breast MRI. Electronically signed and approved by: Katie Kline M.D. Radiologist
== END | disposition home or self-care (01) ==
LOC: RADMAMWWP 10:45
PROVIDERS: ATTEND Obstetrics & Gynecology
DX: Z12.31 Encounter for screening mammogram for malignant neoplasm of breast (principal); Z78.0 Asymptomatic menopausal state; Z80.3 Family history of malignant neoplasm of breast
CPT/HCPCS: 77063; 77067

== ENCOUNTER 2023-03-29 11:59 | Day surgery (SDC) | payer BC ==
[2023-03-24 12:58] VITALS: BMI 35.7
[~2023-03-29 11:59] MED LIST changes: -ACETAMINOPHEN TAB 500 MG TAB PO ONE; -DEXAMETHASONE SOD PHOSPHATE 10 MG/ML 1 ML VIAL IV ONE; -HYDROmorphone 1 MG/ML 1 ML SYRINGE IVP PRN; +LACTATED RINGERS 1,000 ML IV SCH; +LIDOCAINE 1% (10MG/ML) FOR IV START INTRADERMA PRN; -LIDOCAINE 1% 20 ML VIAL (10MG/ML) FOR IV START INTRADERMA PRN; -MELOXICAM 7.5 MG TAB PO ONE; -MIDAZOLAM 2 MG/2 ML VIAL IV PRN; -ONDANSETRON 4 MG/2 ML VIAL IVP ONE; +ONDANSETRON 4 MG/2 ML VIAL IVP PRN; -SCOPOLAMINE 1.5MG/72HR PATCH TRANSDERM ONE; -TRANEXAMIC ACID 1,000 MG in SODIUM CHLORIDE 0.9% 100 ML IVPB ONE; -ceFAZolin 2 GM in SODIUM CHLORIDE 0.9% 100 ML IVPB ONE
[2023-03-29 12:52] VITALS: TEMP 97
[2023-03-29] MEDS ORDERED: PROPOFOL 10 MG/ML 20 ML VIAL IV ONE (13:49)
--- NOTE | 2023-03-29 13:53 | P.GSHP ---
History of Present Illness H&P Date: 03/29/23 Chief Complaint: History of colon polyps This a 49-year-old female who has a previous history of colon polyps. Patient states that she had a colonoscopy prostate years ago at which time benign polyps removed. Patient denies any significant GI complaints. Past Medical History Past Medical History: COPD, GERD/Reflux, Hypertension, Osteoarthritis (OA) Additional Past Medical History / Comment(s): sinus tachycardia History of Any Multi-Drug Resistant Organisms: None Reported Past Surgical History: Joint Replacement, Orthopedic Surgery, Tubal Ligation Additional Past Surgical History / Comment(s): cervical fusion, carpal tunnel release, arthroscopic knee surg., COLONOSCOPY, RT RADHA, CYST REMOVED FROM LT WRIST Past Anesthesia/Blood Transfusion Reactions: Postoperative Nausea & Vomiting (PONV) Smoking Status: Former smoker - Past Family History Mother Family Medical History: No Reported History Medications and Allergies Home Medications Medication Instructions Recorded Confirmed Type Cetirizine HCl [Zyrtec] 10 mg PO DAILY 02/12/15 03/29/23 History Flaxseed [Flaxseed Oil] 1,000 mg PO DAILY 02/12/15 03/29/23 History Nebivolol HCl [Bystolic] 10 mg PO DAILY 02/12/15 03/29/23 History Omeprazole [PriLOSEC] 20 mg PO QAM 02/12/15 03/29/23 History buPROPion HCL [Wellbutrin SR] 150 mg PO BID 02/12/15 03/29/23 History Ibuprofen [Motrin] 600 mg PO Q8HR PRN 12/02/16 03/29/23 History Multivit with Calcium,Iron,Min 1 tab PO DAILY 12/02/16 03/29/23 History [Women's Multivitamin] Turmeric Root Extract [Turmeric] 500 mg PO DAILY 12/02/16 03/29/23 History Vitamin B Complex 1 cap PO DAILY 12/02/16 03/29/23 History hydroCHLOROthiazide [Hydrodiuril] 25 mg PO DAILY 12/02/16 03/29/23 History Progesterone, Micronized 400 mg PO HS 03/24/23 03/29/23 History [Progesterone] Allergies Allergy/AdvReac Type Severity Reaction Status Date / Time venom-honey bee Allergy Severe Anaphylaxis Verified 03/29/23 12:40 [bee venom (honey bee)] Surgical - Exam Vital Signs Temp Pulse Resp BP Pulse Ox 97.0 F L 75 18 142/66 96 03/29/23 12:40 03/29/23 12:40 03/29/23 12:40 03/29/23 12:40 03/29/23 12:40 - General well developed, well nourished, no distress - Eyes PERRL - ENT normal pinna - Neck no masses - Respiratory normal expansion - Cardiovascular Rhythm: regular - Abdomen Abdomen: soft, non tender Assessment and Plan Assessment: History of colon polyps. We'll perform colonoscopy.
--- NOTE | 2023-03-29 14:04 | P.OP ---
Date of Procedure: 03/29/23 Preoperative Diagnosis: History of colon polyps Postoperative Diagnosis: Rectal polyp Sigmoid colon biopsy pathology pending Procedure(s) Performed: Colonoscopy Anesthesia: MAC Surgeon: Hank Acharya Pathology: other (Colon polyp) Condition: stable Disposition: PACU Description of Procedure: The patient's placed on the endoscopy table in the lateral position. She received IV sedation. Digital rectal exam performed. This revealed no abnormalities. The flexible colonoscope was then placed patient anus and passed throughout the entire colon. The ileocecal valve was visualized. The cecum, ascending and transverse colon appeared normal. The descending and sigmoid colon was examined. The descending colon appeared normal. In the sigmoid colon there was minimal inflammatory changes seen. A biopsy the mucosa performed with the cold forcep. Scope was then brought back the rectum and a peduncular polyp was seen. This removed with the snare. The scope was withdrawn for patient.
[2023-03-29 14:12] VITALS: RESP 16
[2023-03-29 14:29] VITALS: BP 128/60; PULSE 76
== END 2023-03-29 14:36 | disposition home or self-care (01) ==
LOC: ORWHC2ENDO 11:59
PROVIDERS: ATTEND Surgery
DX: Z12.11 Encounter for screening for malignant neoplasm of colon (principal); K63.5 Polyp of colon; D12.8 Benign neoplasm of rectum; D72.820 Lymphocytosis (symptomatic); I10 Essential (primary) hypertension; M19.90 Unspecified osteoarthritis, unspecified site; K21.9 Gastro-esophageal reflux disease without esophagitis; Z87.19 Personal history of other diseases of the digestive system; Z87.891 Personal history of nicotine dependence; Z91.030 Bee allergy status; Z79.890 Hormone replacement therapy; Z79.899 Other long term (current) drug therapy; Z86.010 Personal history of colon polyps
CPT/HCPCS: 88305; 45380; 45385; J2704

== ENCOUNTER → 2024-03-01 | Outpatient (CLI) | payer BC ==
--- NOTE | 2024-03-02 14:34 | MM ---
Reason for Exam: Screening (asymptomatic). Last mammogram was performed 1 year(s) and 1 month(s) ago. Patient History: Menarche at age 11. First Full-Term at age 20. Postmenopausal. Currently using Progesterone, for 1 year. Maternal aunt had breast cancer, age 50. Risk Values: Meg 5 year model risk: 1.2%. NCI Lifetime model risk: 6.7%. Prior Study Comparison: 05/27/2020 Bilateral Screening Mammogram, [facility]. 07/16/2021 Bilateral Screening Mammogram, [facility]. 02/18/2023 Bilateral MG 3D screening mammo w/cad, [facility]. Tissue Density: There are scattered areas of fibroglandular density. Findings: Analyzed By CAD. There is no suspicious group of microcalcifications or new suspicious mass in either breast. Overall Assessment: Negative, BI-RAD 1 Management: Screening Mammogram of both breasts in 1 year. . Patient should continue monthly self-breast exams. A clinical breast exam by your physician is recommended on an annual basis. This exam should not preclude additional follow-up of suspicious palpable abnormalities. Note on Meg scores and lifetime risk: 1. A Meg score greater than 3% is considered moderate risk. If this is the case, consider specialist referral to assess eligibility for a risk reducing agent. 2. If overall lifetime risk for the development of breast cancer is 20% or higher, the patient may qualify for future screening with alternating mammogram and breast MRI. Electronically signed and approved by: Lex Bell M.D. Radiologis
== END | disposition home or self-care (01) ==
LOC: RADMAMWWP 12:07
PROVIDERS: ATTEND Obstetrics & Gynecology
DX: Z12.31 Encounter for screening mammogram for malignant neoplasm of breast
CPT/HCPCS: 77063; 77067